=== PATIENT | male | born 1975 | race Caucasian/White ===

== ENCOUNTER 2025-07-31 11:08 | Outpatient (CLI) | payer OTHER, SELFPAY ==
--- NOTE | ~2025-07-31 | CT_ITS ---
EXAMINATION: CT chest abdomen pelvis w con DATE: 07/31/2025 11:59 INDICATION: Colon mass. TECHNIQUE: Computed tomography (CT) of the chest, abdomen, and pelvis was performed with 100 mL Omnipaque 350 intravenous contrast. Automated exposure control and iterative reconstruction technique were employed. The dose-length product was 733.17 mGy-cm. COMPARISON: None FINDINGS: CHEST CT: The lungs demonstrate mild atelectasis. There is a 3 mm nodule in left upper lobe, likely benign. No pleural effusion. The heart size is normal. No pericardial effusion. There is moderate thoracic spondylosis. There is mild chronic anterior wedging of multiple vertebral bodies. ABDOMEN/PELVIS CT: The liver, gallbladder, spleen, pancreas, adrenal glands, and kidneys are normal. There are no dilated loops of bowel. There is a large volume of stool in the colon. The appendix is normal. There are no pathologically enlarged lymph nodes. There is no free intraperitoneal fluid. There is severe lower lumbar spondylosis. IMPRESSION: 1. No specific evidence of malignancy. Reviewed, dictated and finalized at location E.
[2025-07-31 11:44] LABS: Estimated Glomerular Filt Rate > 60
== END 2025-07-31 11:09 | disposition home or self-care (01) ==
LOC: MICIMG 11:09
DX: K63.89 Other specified diseases of intestine (principal)
CPT/HCPCS: 71260; 74177; Q9967